=== PATIENT | female | born 1990 | race Caucasian/White ===

== ENCOUNTER 2018-07-25 16:10 | Emergency (ER) | payer OTHER ==
[~2018-07-25] VITALS: Ht 180.3 cm; Wt 78.6 kg
[~2018-07-25 16:10] MED LIST: COLA100C5 PO; IBUP-1114 PO; MAPA500T2 PO; MYLASUS16 PO; PRENTAB9 PO
[2018-07-25 17:43] LABS: BASO # 0.1 10^3/uL (0.0-0.2); BASO % 0.5 % (0.0-1.0); EOS # 0.1 10^3/uL (0.0-0.50); EOS % 1.1 % (0.0-3.0); HEMATOCRIT 38.1 % (36.0-47.0); HEMOGLOBIN 12.8 g/dl (12.0-15.5); LYMPH # 3.2 10^3/uL (1.5-6.5); LYMPH % 31.1 % (24.0-44.0); MEAN CORPUSCULAR HEMOGLOBIN 29.7 pg (27.0-33.0); MEAN CORPUSCULAR HGB CONC 33.6 g/dl (32.0-36.5); MEAN CORPUSCULAR VOLUME 88.4 fl (80.0-96.0); MONO # 0.8 10^3/uL (0.0-0.8); MONO % 7.3 % (0.0-5.0); NEUTROPHILS # 6.2 10^3/uL (1.8-7.7); NEUTROPHILS % 59.6 % (36.0-66.0); PLATELET COUNT, AUTOMATED 400 10^3/uL (150-450); RED BLOOD COUNT 4.31 10^6/uL (4.00-5.40); WHITE BLOOD COUNT 10.3 10^3/uL (4.0-10.0)
[2018-07-25 18:00] LABS: BLOOD UREA NITROGEN 19 MG/DL (7-18); CALCIUM LEVEL 9.2 MG/DL (8.5-10.1); CARBON DIOXIDE LEVEL 26 MEQ/L (21-32); CHLORIDE LEVEL 108 MEQ/L (98-107); CREATININE FOR GFR 0.86 MG/DL (0.55-1.30); GLOMERULAR FILTRATION RATE > 60.0 (>60); GLUCOSE, FASTING 88 MG/DL (70-100); HCG, SERUM QUANTITATIVE 589 MIU/ML; POTASSIUM SERUM 4.5 MEQ/L (3.5-5.1); SODIUM LEVEL 139 MEQ/L (136-145)
--- NOTE | 2018-07-25 19:10 | REPVR ---
EXAM: US First Trimester, Transabdominal EXAM DATE/TIME: 07/25/2018 6:22 PM CLINICAL HISTORY: 28 years old, female; Signs and symptoms; Lmp or gestational age (in weeks): 4; Antepartum complications; Bleeding; ; Additional info: Vag bleeding/4 wks preg TECHNIQUE: Imaging protocol: Real-time transabdominal obstetrical ultrasound of the maternal pelvis and a first trimester , less than 14 weeks 0 days, with image documentation. COMPARISON: No relevant prior studies available. FINDINGS: GESTATION: Gestation: No gestational sac demonstrated. BIOMETRY: Estimated gestational age: 4 weeks one day by LMP MATERNAL: Uterus: Uterus measures 9.2 x 5.1 x 7.5 cm. endometrial echo complex measures 1.7 centimeters. Cervix: Unremarkable. Right adnexa: Multiple simple cyst demonstrated in the right ovary measuring up to 2 centimeters. Left adnexa: Cyst demonstrated in the left ovary measure up to 2 centimeters. Intraperitoneal: No free fluid demonstrated. IMPRESSION: Empty uterus in a patient with a reportedly positive test. Finding may indicate very early IUP prior to visualization of a gestational sac or fetus. Correlation with serial beta-hCG levels and follow ultrasound recommended in order to exclude ectopic verses very early or early failure. Electronically signed by: Naresh Chaney On 07/25/2018 19:10:04 PM
[2018-07-25 19:33] VITALS: BP 106/68
[2018-07-25 19:34] LABS: CHLAMYDIA DNA AMPLIFICATION NEGATIVE (NEGATIVE); GC DNA AMPLIFICATION NEGATIVE (NEGATIVE)
== END 2018-07-25 20:47 | disposition home or self-care (01) ==
LOC: M ED 16:10
DX: O20.0 Threatened abortion (principal); Z3A.01 Less than 8 weeks gestation of pregnancy

== ENCOUNTER 2018-07-29 15:07 | Emergency (ER) | payer OTHER ==
[~2018-07-29] VITALS: Ht 180.3 cm; Wt 78.6 kg
[2018-07-29 15:45] LABS: HEMATOCRIT 36.2 % (36.0-47.0); HEMOGLOBIN 12.4 g/dl (12.0-15.5); MEAN CORPUSCULAR HEMOGLOBIN 29.5 pg (27.0-33.0); MEAN CORPUSCULAR HGB CONC 34.3 g/dl (32.0-36.5); PLATELET COUNT, AUTOMATED 382 10^3/uL (150-450); RED BLOOD COUNT 4.21 10^6/uL (4.00-5.40); WHITE BLOOD COUNT 8.8 10^3/uL (4.0-10.0)
[2018-07-29 16:28] VITALS: BP 131/68
--- NOTE | 2018-07-30 09:19 | REP ---
Emergency first trimester obstetric ultrasound for vaginal bleeding: The study is performed with transabdominal, endovaginal and Doppler ultrasound assessment: The patient reportedly has a quantitative HCG of 129 units. The uterus is anteverted and measures 8.4 5.0 x 6.8 cm and is normal size. There is no intrauterine gestation. The endometrium measures 15.8 ml which is upper normal. There is a right ovarian 2.1 x 1.8 x 1.9 cm dominant follicle. Additionally, there is a right ovarian 1.8 x 1.4 x 1.4 hemorrhagic follicle. There is a left ovarian 2.1 x 1.8 x 2.2 cm dominant follicle. The right ovary, including the follicles, measures 5.1 x 2.8 x 2.6 cm and is mildly enlarged. The left ovary including the follicle measures 3.4 x 2.3 x 2.3 cm and is normal size. There is a trace of free fluid in the right adnexa. With Doppler assessment there is vascular flow in both ovaries with the resistive index of the parenchymal arteries in the right ovary measuring 0.58 and the left ovary measuring 0.57. Impression: There is no intrauterine gestation. This is nonspecific and could represent early gestation not yet visible, spontaneous or ectopic gestation. Follow-up is recommended. Electronically Signed by Giuseppe Matos MD 07/29/2018 05:05 P
== END 2018-07-29 17:22 | disposition home or self-care (01) ==
LOC: M ED 15:07
DX: O20.0 Threatened abortion (principal); O36.80X0 Pregnancy with inconclusive fetal viability, not applicable or unspecified; Z3A.00 Weeks of gestation of pregnancy not specified

== ENCOUNTER 2018-08-01 02:17 | Day surgery (SDC) | payer OTHER ==
[~2018-08-01] VITALS: Ht 180.3 cm; Wt 77.3 kg
[2018-08-01] MEDS ORDERED: ONDANSETRON 4MG/2ML VIAL (J2405) IV ONE (02:30)
[2018-08-01] MEDS ORDERED: NS 1,000 ML IV ONE ×2 (02:30→04:45)
[2018-08-01 02:35] LABS: HEMOGLOBIN 12.9 g/dl (12.0-15.5); MEAN CORPUSCULAR HEMOGLOBIN 29.8 pg (27.0-33.0); MEAN CORPUSCULAR HGB CONC 34.9 g/dl (32.0-36.5); MEAN CORPUSCULAR VOLUME 85.5 fl (80.0-96.0); PLATELET COUNT, AUTOMATED 375 10^3/uL (150-450); RED BLOOD COUNT 4.33 10^6/uL (4.00-5.40); WHITE BLOOD COUNT 11.9 10^3/uL (4.0-10.0)
[2018-08-01] MEDS: MORPHINE 4 MG/ML 1ML VIAL/SYRINGE (J2270) IV PRN ×2 (02:37→03:11)
[2018-08-01] MEDS ORDERED: ACET-897 PO (04:50)
[2018-08-01] MEDS ORDERED: PRENTAB55 PO (04:50)
[2018-08-01] MEDS ORDERED: fentaNYL 250 MCG/5 ML INJECTION (J3010) As Ordered ONE (05:47)
[2018-08-01] MEDS ORDERED: PROPOFOL 200 MG/20 ML VIAL As Ordered ONE (05:47)
[2018-08-01] MEDS ORDERED: ROCURONIUM BROMIDE 50 MG/5 ML VIAL As Ordered ONE (05:47)
[2018-08-01] MEDS ORDERED: dexameTHASONE 4 MG/ML 1ML VIAL (J1100) As Ordered ONE (05:47)
[2018-08-01] MEDS ORDERED: LIDOCAINE 2% INJ 100 MG/5 ML SDV (FOR ANES.) As Ordered ONE (05:47)
[2018-08-01] MEDS ORDERED: ONDANSETRON 4MG/2ML VIAL (J2405) As Ordered ONE (05:47)
[2018-08-01] MEDS ORDERED: MIDAZOLAM INJ 2 MG/2 ML VIAL (J2250) As Ordered ONE (05:48)
--- NOTE | 2018-08-01 06:12 | REPVR ---
EXAM: US First Trimester, Transabdominal and US , Transvaginal EXAM DATE/TIME: 08/01/2018 4:21 AM CLINICAL HISTORY: 28 years old, female; complicated by abdominal or pelvic pain; Right lower quadrant; First trimester; Gestational age or lmp: 06/26/18; ; Additional info: Rlq pain R/O ectopic TECHNIQUE: Imaging protocol: Real-time transabdominal obstetrical ultrasound of the maternal pelvis and a first trimester , less than 14 weeks 0 days, with image documentation. Transvaginal imaging was used for better evaluation of the fetus and adnexa. COMPARISON: US OB 07/25/2018 6:26 PM FINDINGS: GESTATION: Gestation: No intrauterine gestational sac is identified. Heart rate: No pole identified. Placenta: No gestational sac identified. Amniotic fluid: No gestational sac identified. BIOMETRY: Estimated gestational age: Indeterminate. No gestational sac or pole identified. MATERNAL: Uterus: The uterus measures 10.3 x 5.7 x 7.5 cm. The endometrial stripe measures 1.2 cm in thickness. Cervix: Unremarkable. Right adnexa: In the right adnexa, there is intermediate echogenicity tissue measuring approximately 4.3 x 3.6 x 4.2 cm which has internal flow on color Doppler. This is immediately adjacent to the right ovary and was probably included in the right ovary measurements on the prior exam, but it appears more prominent and heterogeneous on the current exam and is suspicious for an ectopic , given the lack of an identifiable intrauterine . The right ovary contains an anechoic round area , likely a corpus luteum, which measures 1.4 x 1.8 x 1.7 cm compared to 2.1 x 1.7 x 1.8 cm on the prior exam. Measurements of the right ovary are currently 3.9 x 2.9 x 2.8 cm. Normal venous flow and low resistance, relatively low velocity arterial flow are seen within the right ovary with a peak systolic velocity of 21 cm/s. Left adnexa: The left ovary contains a dominant follicle with a maximal diameter of 1.5 cm which is smaller than on the prior exam when it measured 2.1 cm in diameter. The left ovary measures 2.8 x 2.2 x 2.8 cm. Arterial and venous blood flow are seen in the left ovary on color and pulsed Doppler. Intraperitoneal: There is a moderate amount of free fluid in the pelvis with low level internal echoes. No fluid seen in Marie's pouch. IMPRESSION: 1. No intrauterine identified. 2. Moderate amount of free fluid. 3. Complex echogenic area in the right adnexa highly suspicious for ectopic . 4. Anechoic cystic area within the right ovary, likely a corpus luteum. Electronically signed by: Fabby Quinn On 08/01/2018 06:12:18 AM
[2018-08-01] MEDS ORDERED: SUGAMMADEX SODIUM 500 MG/5 ML VIAL (BRIDION) As Ordered ONE (07:06)
[2018-08-01] MEDS ORDERED: KETOROLAC 60 MG/2 ML VIAL (J1885) As Ordered ONE (07:36)
[2018-08-01] MEDS ORDERED: PHENYLephrine HCL 500 MCG/5 ML (100MCG/ML) SYRINGE (J2370) As Ordered ONE (07:49)
[2018-08-01] MEDS ORDERED: ePHEDrine SULFATE 25 MG/5 ML(5MG/ML) SYRINGE As Ordered ONE (07:49)
[2018-08-01] MEDS ORDERED: SILVER NITRATE APPLICATOR As Ordered ONE (07:51)
[2018-08-01] MEDS ORDERED: fentaNYL 100 MCG/2 ML INJECTION (J3010) IV PRN (08:30)
[2018-08-01] MEDS ORDERED: ONDANSETRON 4MG/2ML VIAL (J2405) IV PRN (08:30)
[2018-08-01] MEDS ORDERED: METOCLOPRAMIDE INJ 10MG/2ML VIAL (J2765) IV PRN (08:30)
[2018-08-01] MEDS ORDERED: PERCOCET 5MG/325MG TAB PO PRN (08:30)
[2018-08-01] MEDS ORDERED: LR 1,000 ML IV SCH (08:30)
[2018-08-01 09:15] VITALS: BP 113/55
[2018-08-01] MEDS ORDERED: PERC5TAB12 PO (09:37)
[2018-08-01] MEDS ORDERED: IBUP80TA PO (09:37)
[2018-08-01] MEDS ORDERED: COLA100C5 PO (09:37)
[2018-08-01 09:45] VITALS: BP 109/56
[2018-08-01 10:45] VITALS: BP 135/70
--- NOTE | 2018-08-03 11:42 | RO ---
DATE OF PROCEDURE: 08/01/2018 PREOPERATIVE DIAGNOSIS: Ruptured ectopic , likely right side. POSTOPERATIVE DIAGNOSIS: Ruptured ectopic , right side confirmed. OPERATIVE PROCEDURE: Operative laparoscopy with right salpingectomy. SURGEON: Giuseppe Monroy MD STRUCTURAL ENGINEERING DRAFTING OFFICER: Dima Musa MD ANESTHESIA: General tracheal. ESTIMATED BLOOD LOSS: 50 mL. URINE OUTPUT: 500 mL of urine in the Sharp catheter. FLUIDS REPLACED: Lactated Ringer's 1200 mL. SPECIMENS REMOVED: Ectopic which was inside the bleeding right fallopian tube. INDICATION: The patient had been seen several times in the emergency room for abnormal bleeding and early was no concern for ectopic until overnight when she presented with significant abdominal pain and a quant rise which was not appropriate for normal gestation. Though on evaluations ultrasound showed signs very suspicious for a bleeding ectopic. The patient was consented for operative laparoscopy, possible salpingectomy, possible dilatation and curettage should the laparoscopy be normal. Informed consent was obtained for the above and she was taken urgently to the operating room. FINDINGS: An obviously ruptured right fallopian tube with a significant amount of clot and non-clotted blood in the lower pelvis. Normal upper abdomen and normal left fallopian tube, normal ovaries bilaterally, normal uterus. DESCRIPTION OF OPERATION: The patient was taken to the operating room with an IV in place, placed in the dorsal lithotomy position. A gentle exam under anesthesia confirmed a right adnexal mass with a normal sized uterus. A [employer] uterine manipulator was placed without difficulty. The surgeons gloves were changed and returned our attention to the abdomen. Prior to approaching the vagina, the patient was prepped and draped in a normal sterile fashion. Surgeons were scrubbed and a time out was performed. With new gloves, 0.25% Marcaine was injected infraumbilically and a 5 mm incision was performed over the skin only. We then tented up the abdominal wall and an OptiView trocar was placed into the abdomen under the direct visualization without difficulty. Pneumoperitoneum was easily obtained and the patient was placed in Trendelenburg. I then placed a right lower quadrant port under direct visualization in the exact same manner, 5 mm. I then placed a left lower quadrant port in the exact same manner under direct visualization, 12 mm. With the uterine manipulator able to easily identify the obvious right ectopic and with a suction child protective investigator we cleared of as much non clotting blood and clotted blood as possible. With a grasper through the right lower quadrant port and the LigaSure through the left lower quadrant port, we easily dissected off the fallopian tube from the ovary, all the way down to the cornu of the uterus. There was never fear of ureter involvement. Bleeding was hemostatic throughout and at the end of the case. Photo documentation was provided of the ectopic before and after. The specimen was placed in an EndoCatch bag and easily removed through the 12 mm port. The Alec-Irvin device was then used to close the fascia on the 12 mm port site without difficulty. As much pneumoperitoneum was allowed to escape as possible and all three ports were removed under direct visualization. There was never fear of other organ or blood vessel injury. The left lower quadrant port site was closed with subcuticular running #4-0 Monocryl and the other two ports were closed with DERMABOND. All counts were correct before, during and after the case.
== END 2018-08-01 12:15 | disposition home or self-care (01) ==
LOC: M ED 02:17 → M SDC 05:50 → M PED 09:00 → M SDC 12:15
PROVIDERS: ATTEND Obstetrics & Gynecology
DX: O00.101 Right tubal pregnancy without intrauterine pregnancy (principal)
CPT/HCPCS: 59151; 76801; 76817; 84702; 85027; 86850; 86900; 86901; 88305; 93976; 96374; 96375; 99284; J1100; J1885; J2250; J2270; J2370; J2405; J3010

== ENCOUNTER 2019-03-28 16:47 | Emergency (ER) | payer OTHER ==
[~2019-03-28] VITALS: Ht 177.8 cm; Wt 78.7 kg
[~2019-03-28 16:47] MED LIST changes: +ACET-897 PO; +IBUP80TA PO; +PERC5TAB12 PO; +PRENTAB55 PO
[2019-03-28 17:44] LABS: BASO # 0.1 10^3/uL (0.0-0.2); BASO % 0.6 % (0.0-1.0); EOS # 0.2 10^3/uL (0.0-0.5); EOS % 1.6 % (0.0-3.0); HEMATOCRIT 38.7 % (36.0-47.0); LYMPH # 2.6 10^3/uL (1.5-5.0); LYMPH % 27.5 % (24.0-44.0); MEAN CORPUSCULAR HEMOGLOBIN 29.1 pg (27.0-33.0); MEAN CORPUSCULAR HGB CONC 33.6 g/dl (32.0-36.5); MEAN CORPUSCULAR VOLUME 86.6 fl (80.0-96.0); MONO # 0.7 10^3/uL (0.0-0.8); MONO % 7.1 % (0.0-5.0); NEUTROPHILS # 5.9 10^3/uL (1.5-8.5); NEUTROPHILS % 62.9 % (36.0-66.0); PLATELET COUNT, AUTOMATED 351 10^3/uL (150-450); RED BLOOD COUNT 4.47 10^6/uL (4.00-5.40); WHITE BLOOD COUNT 9.4 10^3/uL (4.0-10.0)
[2019-03-28 18:49] LABS: APPEARANCE, URINE HAZY (CLEAR); BACTERIA, URINE AUTO 1+ (NEGATIVE); BILIRUBIN, URINE AUTO NEGATIVE (NEGATIVE); BLOOD, URINE BLOOD NEGATIVE (NEGATIVE); COLOR, URINE YELLOW (YELLOW); GLUCOSE, URINE (UA) AUTO NEGATIVE (NEGATIVE); KETONE, URINE AUTO TRACE mg/dL (NEGATIVE); LEUKOCYTE ESTERASE, URINE AUTO NEGATIVE (NEGATIVE); NITRITE, URINE AUTO NEGATIVE (NEGATIVE); PROTEIN, URINE AUTO NEGATIVE (NEGATIVE); RBC, URINE AUTO 2 /HPF (0-3); SPECIFIC GRAVITY URINE AUTO 1.018 (1.002-1.035); SQUAMOUS EPITHELIAL CELL UR AU 0 /HPF (0-6); UROBILINOGEN, URINE AUTO 0.2 mg/dL (0.0-2.0); WBC, URINE AUTO 2 /HPF (0-3)
--- NOTE | 2019-03-28 19:06 | REPVR ---
PROCEDURE INFORMATION: Exam: US First Trimester, Transabdominal and US , Transvaginal Exam date and time: 03/28/2019 6:05 PM Age: 28 years old Clinical indication: complicated by abdominal or pelvic pain; Left lower quadrant; First trimester; Gestational age or lmp: 5w5d; ; Prior surgery; Surgery date: 6+ months; Surgery type: RT ectopic and RT salpingectomy July 2018; Additional info: Llq pain TECHNIQUE: Imaging protocol: Real-time transabdominal obstetrical ultrasound of the maternal pelvis and a first trimester , less than 14 weeks 0 days, with image documentation. Transvaginal imaging was used for better evaluation of the fetus and adnexa. COMPARISON: No relevant prior studies available. FINDINGS: GESTATION: Gestation: Intrauterine gestational sac measuring 9.8 mm. Yolk sac is present without pole. BIOMETRY: Estimated gestational age: Estimated gestational age is 5 weeks and 5 days. Estimated due date: Estimated date of delivery is 11/23/2019. MATERNAL: Uterus: Uterus measures 9.9 x 6.6 x 7.2 cm. Cervix: Unremarkable. Right adnexa: Right ovary measures 1.4 x 2.1 x 1.5 cm. Right ovary appears within normal limits. Left adnexa: Left ovary measures 2.8 x 2.2 x 2.1 cm. 1.9 cm left ovarian corpus luteum cyst. Intraperitoneal: No pathologic free fluid. IMPRESSION: Intrauterine gestational sac and yolk sac with estimated gestational age of 5 weeks and 5 days. No pole is identified. Electronically signed by: Thomas Quinn On 03/28/2019 19:06:01 PM
[2019-03-28 19:56] VITALS: BP 126/73
== END 2019-03-28 19:57 | disposition home or self-care (01) ==
LOC: M ED 16:47
DX: O20.0 Threatened abortion (principal); O34.81 Maternal care for other abnormalities of pelvic organs, first trimester; Z3A.01 Less than 8 weeks gestation of pregnancy

== ENCOUNTER → 2019-07-24 | Outpatient (CLI) | payer OTHER ==
--- NOTE | 2019-07-25 16:35 | REP ---
Clinical: Anatomical evaluation. Comparison: 03/28/2019 . Findings: Examination demonstrates a single live intrauterine in variable presentation. motion is identified by technologist. Placenta is noted posterior and grade zero without evidence for placenta previa or abruption. Amniotic fluid volume is normal. Cervix measures 5.7 cm in length and appears closed. No evidence for nuchal cord. Gestational age by LMP 22 weeks 4 days with ALYSON 11/23/2019 . Gestational age by current measurements 23 weeks 1 day with ALYSON 11/19/2019 . FHR equals 143 beats per minute. Estimated weight 545 grams ( 55th percentile). Anatomical assessment demonstrates normal structures including cranium, choroid plexus, cavum, cerebellum/posterior fossa, facial features, lungs, four-chamber heart/ventricular outflow tracts, diaphragm, stomach, cord insertion/ two vessel cord, kidneys/bladder, spine, and extremities. Impression: 1. Single live intrauterine in variable presentation demonstrating appropriate interval growth. 2. Single umbilical artery noted. Remainder of the anatomical assessment is complete and normal. Electronically Signed by Hernando Raza MD 07/25/2019 04:28 P
== END ==
LOC: M RAD 09:50
PROVIDERS: ATTEND Obstetrics & Gynecology
DX: Z34.82 Encounter for supervision of other normal pregnancy, second trimester (principal)

== ENCOUNTER 2019-11-27 00:45 | Inpatient (IN) | payer OTHER ==
[2019-11-27 22:13] LABS: HEMATOCRIT 31.8 % (36.0-47.0); HEMOGLOBIN 10.9 g/dl (12.0-15.5); MEAN CORPUSCULAR HEMOGLOBIN 29.3 pg (27.0-33.0); MEAN CORPUSCULAR HGB CONC 34.3 g/dl (32.0-36.5); MEAN CORPUSCULAR VOLUME 85.5 fl (80.0-96.0); PLATELET COUNT, AUTOMATED 300 10^3/uL (150-450); RED BLOOD COUNT 3.72 10^6/uL (4.00-5.40); WHITE BLOOD COUNT 10.8 10^3/uL (4.0-10.0)
--- NOTE | 2020-01-18 15:16 | IPN ---
DATE: 11/28/2019 This patient requested circumcision of her male . After discussing the risks and benefits of the circumcision, the medical to non- medical indications, the penile block and aftercare, expressed understanding of penile block, aftercare, and bleeding, signed the consent form. All questions were answered. 20 minute discussion. We await clearance by the psychologist developmental. LUIZA
== END 2019-11-28 19:23 | disposition home or self-care (01) | DRG 807 ==
LOC: M OBS 00:45
PROC: 10E0XZZ Delivery of Products of Conception, External Approach (ICD-10-PCS; principal; 2019-11-27)
DX: O69.81X0 Labor and delivery complicated by cord around neck, without compression, not applicable or unspecified (principal); Z37.0 Single live birth